=== PATIENT | male | born 1990 | race Two or more races ===

== ENCOUNTER 2023-11-30 15:28 | Observation (INO) | payer BC, SELFPAY ==
[2023-11-30] VITALS (8 sets, daily range): BP systolic 121–141; BP diastolic 70–86; PULSE 58–71; TEMP 36.6–37; O2SAT 95–98; BMI 26.6; BMI 26.0
--- NOTE | 2023-11-30 | CONS_ITS ---
CONSULTATION ? CONSULTATION DATE: ??11/30/2023 ? CHIEF COMPLAINT:? Abdominal pain. ? HISTORY OF PRESENT ILLNESS:? Patient is a 33-year-old male with history of hypercholesterolemia.? He is on no medications for this, who presented to the hospital this evening with complaint of lower abdominal pain.? He reports that the pain began approximately 11 o?clock this morning, initially was kind of crampy, sharp.? He felt bloated.? He did report that he had two small bowel movements this morning, but felt that he was possibly constipated and took several fiber gummies, as well as some MiraLax.? He also ate some lunch and then felt nauseous and then had an episode of emesis.? His pain became more severe, was constant.? He describes it as a sharp, crampy pain that was constant in the lower abdomen, even with rest or sitting it was severe.? He presented to the emergency room for evaluation, where he was found to have normal laboratory evaluation, normal vital signs.? He did undergo a CT scan of the abdomen and pelvis with IV contrast.? This was personally reviewed.? It was read as possibly consistent with early appendicitis, based on a 6 mm appendix and slight fat stranding noted in the area.? Patient had no fecalith, has a 6 mm appendix with air within it, stool within the right colon.? No free fluid.? No fecalith.? No dilatation of the appendix; however, the tip was not inflamed.? No free fluid.? Abdomen was otherwise unremarkable, except for some mildly dilated loops of small bowel within the distal ileum.? Patient was admitted for observation and was placed on empiric antibiotics.? He denies history of similar type pain, has had no bowel changes or blood in the stool.? No diarrhea.? No problems with constipation in the past.? Did report that he had been drinking last night, beer, and thought that may have contributed to his symptoms today.? He has had no previous abdominal surgeries, is on no prescription medications, no sgpl-lmi-ajflial medications.? No aspirin or NSAID use.? He has no family history of inflammatory bowel disease or GI malignancy.? He denies smoking or vaping.? ? ALLERGIES:? Patient has no known drug allergies. ? MEDICATIONS:? Once again, is on no medications or [id number]-[id number] medications. ? SOCIAL HISTORY:? He does drink alcohol socially.? Denies tobacco use or illicit drug use.? He is employed as a [employer]. ? FAMILY HISTORY:? Noncontributory. ? REVIEW OF SYSTEMS:? Ten system review of systems is negative for recent weight loss or weight gain.? Denies increased fatigue or light-headedness.? Has had no earache or tinnitus.? No sinus congestion.? No sore throat or hoarseness.? No chest pain, palpitations or syncope.? No chronic cough, shortness of breath or hemoptysis.? He has had the abdominal pain, one episode of nausea/vomiting.? No bowel changes.? No melena, hematochezia or bright red blood per rectum.? No dysuria, frequency, urgency or hematuria.? No headaches, seizures or tremors.? No easy bruising or bleeding.? No heat or cold intolerance.? No polydipsia, polyphagia or polyuria. ? PHYSICAL EXAM:? VITAL SIGNS:? Patient?s blood pressure is 134/70.? Pulse is 71 and regular.? Respiratory rate is 18.? He is afebrile.? O2 saturation is 97% on room air.? GENERAL:? In general, he is a well developed, well nourished male, in no acute distress.? He reports that his pain is resolved. HEENT:? Normocephalic, atraumatic.? Sclerae anicteric.? Conjunctiva not injected.? Oral mucosa is moist without lesions.? NECK:? Supple.? There is no adenopathy, thyromegaly or JVD. LUNGS:? Clear bilaterally.? CARDIAC EXAM:? Regular rhythm and rate without appreciable murmurs, rubs or gallops. ABDOMEN:? Soft, non-distended.? There are normal active bowel sounds.? There is very mild tenderness to deep palpation in the right lower quadrant with no peritoneal signs, no masses, hepatosplenomegaly, no hernias, no CVA tenderness. SKIN:? Warm and dry without lesions, rashes or ulcers.? NEURO EXAM:? Non-focal.? Non-lateralizing.? Patient is awake, alert, oriented with appropriate affect. ? ASSESSMENT: ?A 33-year-old male with an eight hour history of mid and lower abdominal pain, one episode of nausea/vomiting, now very mild right lower quadrant tenderness to deep palpation.? No evidence of obstruction of the appendix on CT scan or significant inflammatory changes or fecalith.? Overall, I believe it is unlikely that he has appendicitis.? ? RECOMMENDATIONS:? Certainly, he has been given antibiotics and I would complete a five day course.? I will re-evaluate him in the morning.? Certainly, if he would have a fever, worsening white count, worsening abdominal pain or tenderness, he may require a laparoscopy for appendectomy.? Certainly, I cannot rule out very early appendicitis, but given the fact that there is no obstruction of the appendix or significant inflammatory changes or dilatation of the appendix, and currently his pain has improved just with a dose of Toradol in the ER, I believe it is unlikely to represent acute appendicitis. ? CC:? Patient?s family physician?? ST[facility]ON
--- NOTE | 2023-11-30 15:52 | CT_ITS ---
The [address] [address] Patient Name: MATTHIEU NGO MRN: [id number] date: 1990 Sex: M Assigned Patient Location: ED.MAIN Current Patient Location: Accession/Order Number: [id number] Exam Date: 11/30/2023 16:05 Report Date: 11/30/2023 16:34 At the request of: GUADALUPE BULLARD Procedure: CT abdomen pelvis w con EXAM: CT abdomen pelvis w con HISTORY: rlq pain COMPARISON: None. TECHNIQUE: Axial CT imaging was performed through the abdomen and pelvis with intravenous contrast. Multiplanar reformats were performed. Dose reduction techniques were achieved by using automated exposure control and/or adjustment of mA and/or kV according to patient size and/or use of iterative reconstruction technique. FINDINGS: Lung bases: Lung bases are clear. No pleural effusion. GI upper: Unremarkable. Liver: Normal size and contour. Gallbladder: No significant abnormality. No cholelithiasis. Biliary system: No intra or extrahepatic biliary ductal dilatation. Spleen: Normal size. Pancreas: Unremarkable. Adrenal glands: Normal adrenal glands. Kidneys/ureters: Normal contours. No hydronephrosis. No nephrolithiasis or ureterolithiasis. Vessels: No aneurysm. Lymph Nodes: No lymphadenopathy. Small bowel: No wall thickening or dilatation. Colon: No wall thickening or dilatation. Appendix: The appendix is borderline in size, measuring 0.6 cm, containing stool with mild surrounding fat stranding, may represent early acute appendicitis. Peritoneal cavity: No free fluid or pneumoperitoneum. Lower : Unremarkable. Bones: No acute bony abnormality. Soft tissues: No acute finding. Additional findings: None. CT/CT abdomen pelvis w con IMPRESSION: The appendix is borderline in size, measuring 0.6 cm, containing stool with mild surrounding fat stranding, may represent early acute appendicitis. Electronically authenticated by: DENIS HEADLEY Date: 11/30/2023 16:34
[2023-11-30 16:13] LABS: Basophils Absolute Auto 0.1 10^3/uL (0.0-0.1); Basophils Percent Auto 0.4 % (0.2-2.0); Eosinophils Absolute Auto 0.4 10^3/uL (0.0-0.7); Eosinophils Percent Auto 3.2 % (0.9-7.0); Hematocrit 46.9 % (42.0-54.0); Hemoglobin 16.4 g/dL (14.0-18.0); Immature Granulocytes Abs Auto 0.03 10^3/uL (0.00-0.03); Immature Granulocytes Pct Auto 0.3 % (0.0-0.5); Lymphocytes Absolute Auto 1.9 10^3/uL (1.2-3.8); Lymphocytes Percent Auto 16.7 % (20.5-60.0); Mean Corpuscular Hemoglobin 30.9 pg (25.9-34.0); Mean Corpuscular Volume 88.5 fL (80.0-94.0); Mean Platelet Volume 9.8 fL (9.5-13.5); Monocytes Absolute Auto 0.7 10^3/uL (0.3-0.8); Monocytes Percent Auto 6.4 % (1.7-12.0); Neutrophils Absolute Auto 8.3 10^3/uL (1.4-6.5); Platelet Count 171 10^3/uL (150-450); Red Cell Distribution Width 12.3 % (11.0-15.0); White Blood Count 11.3 10^3/uL (4.0-11.0)
[2023-11-30] MEDS: 0.9 % SODIUM CHLORIDE 1,000 ML 100 ML IV (16:20)
[2023-11-30] MEDS: KETOROLAC TROMETHAMINE 30 MG/ML VIAL IVP (16:21)
[2023-11-30] MEDS: ONDANSETRON PF 4 MG/2 ML VIAL IV (16:21)
[2023-11-30 16:32] LABS: Alanine Aminotransferase 32 U/L (16-63); Albumin Globulin Ratio 1.3; Albumin Level 4.3 g/dL (3.4-5.0); Alkaline Phosphatase 63 U/L (46-116); Anion Gap 7.5; Aspartate Amino Transferase 14 U/L (15-37); Bilirubin Total 0.3 mg/dL (0.2-1.0); Calcium 9.2 mg/dL (8.5-10.1); Carbon Dioxide 33.1 mmol/L (21.0-32.0); Chloride 99 mmol/L (98-107); Estimated GFR (African America >60 (>=60); Estimated GFR (Non-African Ame >60 (>=60); Globulin 3.4 g/dL; Glucose 96 mg/dL (74-106); Potassium 3.6 mmol/L (3.5-5.1); Sodium 136 mmol/L (136-145); Total Protein 7.7 g/dL (6.4-8.2)
--- NOTE | 2023-11-30 16:42 | ED.GENADUL1 ---
HPI HPI - General Adult General Chief complaint: Abdominal Pain Stated complaint: Abdominal Pain, Nausea/Vomiting Time Seen by Provider: 11/30/23 15:48 Source: patient Mode of arrival: walk-in History of Present Illness HPI narrative: 33-year-old male presents with chief complaint of right lower quadrant abdominal pain. Patient states pain began around 11 AM. Patient attempted to eat lunch and became nauseous and vomited. Patient denies fevers or chills. States she has had periumbilical pain and lower abdominal cramping. Patient denies any previous history of abdominal surgeries. He has right lower quadrant tenderness on palpation initially on exam. He denies known fever. He denies diarrhea. past medical History includes hyperlipidemia Related Data Home Medications ?Medication ?Instructions ?Recorded ?Confirmed No Known Home Medications 11/30/23 11/30/23 Allergies Allergy/AdvReac Type Severity Reaction Status Date / Time No Known Drug Allergies Allergy Verified 11/30/23 15:37 Opioid HPI Opioid Management Most Recent Opioid Data: Last Pain Scale 7 11/30/23 16:21 Last MAR Pain Assessment 11/30/23 16:21 Review of Systems ROS Narrative All Systems are negative except as noted/marked.All systems reviewed and otherwise negative PFSH PFSH Social History Little interest or pleasure in doing things: not at all Feeling down, depressed, or hopeless: not at all Exam Narrative Exam Narrative: Nurses note and vital signs reviewed and patient is not hypoxic. General: The patient appears well and in no apparent distress. Patient is resting comfortably on cart. Skin: Warm, dry, no pallor noted. There is no rash noted. Head: Normocephalic, atraumatic Eye: Normal conjunctiva, no drainage, EOMI. PERRL Ears, Nose, Mouth, and Throat: oral mucosa is moist. Nares patent. Mouth without vesicles. Ear canals patent. Tm's without Erythema Cardiovascular: Regular Rate and Rhythm GI: Right lower quadrant abdominal tenderness to palpation periumbilical tenderness, normal bowel sounds. No rebound, guarding, or rigidity noted. Musculoskeletal: The patient has no evidence of calf tenderness, no pitting edema, symmetrical pulses noted bilaterally Neurological: A&O x4, normal speech Psychiatric: Cooperative Constitutional Vital Signs, click to edit/add: Last Vital Signs Temp 98 F 11/30/23 15:34 Pulse 62 11/30/23 15:34 Resp 16 11/30/23 15:34 BP 141/86 11/30/23 15:34 Pulse Ox 98 11/30/23 15:34 O2 Del Method Room Air 11/30/23 15:34 Course Vital Signs Vital signs: Vital Signs Temperature 98 F 11/30/23 15:34 Pulse Rate 62 11/30/23 15:34 Respiratory Rate 16 11/30/23 15:34 Blood Pressure 141/86 11/30/23 15:34 Pulse Oximetry 98 11/30/23 15:34 Oxygen Delivery Method Room Air 11/30/23 15:34 Temperature 98 F 11/30/23 15:34 Pulse Rate 62 11/30/23 15:34 Respiratory Rate 16 11/30/23 15:34 Blood Pressure 141/86 11/30/23 15:34 Pulse Oximetry 98 11/30/23 15:34 Oxygen Delivery Method Room Air 11/30/23 15:34 Medical Decision Making MDM Narrative Medical decision making narrative: 33-year-old male presents with chief complaint of right lower quadrant abdominal pain. Patient states pain began around 11 AM. Patient attempted to eat lunch and became nauseous and vomited. Patient denies fevers or chills. States she has had periumbilical pain and lower abdominal cramping. Patient denies any previous history of abdominal surgeries. He has right lower quadrant tenderness on palpation initially on exam. He denies known fever. He denies diarrhea. past medical History includes hyperlipidemia Patient presented with chief complaint right lower quadrant abdominal pain. Upon arrival to the emergency room IV was established blood work was obtained. Patient CBC shows mildly elevated white blood cell count 11.2. cmp within normal limits. CT scan was also performed and showed probable early onset of acute appendicitis. consult to general surgeon Dr. Jackson regarding this patient's diagnosis. He agrees to admit the patient for observation to Dr. Brush. Patient will be given IV Unasyn started here in the emergency room. Patient is made aware of diagnosis and agrees with plan of care. Pain and nausea have improved with Toradol and Zofran. Differential Diagnosis Differential Diagnosis: Constipation diverticulitis, appendicitis Medical Records Medical records reviewed: Yes I reviewed the patient's medical records Lab Data Lab results reviewed: Yes I reviewed the patient's lab results Labs: Lab Results 11/30/23 Range/Units 16:00 WBC 11.3 H (4.0-11.0) 10^3/uL RBC 5.30 (4.70-6.10) 10^6/uL Hgb 16.4 (14.0-18.0) g/dL Hct 46.9 (42.0-54.0) % MCV 88.5 (80.0-94.0) fL MCH 30.9 (25.9-34.0) pg MCHC 35.0 (29.9-35.2) g/dL RDW 12.3 (11.0-15.0) % Plt Count 171 (150-450) 10^3/uL MPV 9.8 (9.5-13.5) fL Neut % (Auto) 73.0 (43.0-75.0) % Lymph % (Auto) 16.7 L (20.5-60.0) % [place] % (Auto) 6.4 (1.7-12.0) % Eos % (Auto) 3.2 (0.9-7.0) % Baso % (Auto) 0.4 (0.2-2.0) % Neut # (Auto) 8.3 H (1.4-6.5) 10^3/uL Lymph # (Auto) 1.9 (1.2-3.8) 10^3/uL [place] # (Auto) 0.7 (0.3-0.8) 10^3/uL Eos # (Auto) 0.4 (0.0-0.7) 10^3/uL Baso # (Auto) 0.1 (0.0-0.1) 10^3/uL Abs Immat Gran (auto) 0.03 (0.00-0.03) 10^3/uL Imm/Tot Granulo (auto) 0.3 (0.0-0.5) % Sodium 136 (136-145) mmol/L Potassium 3.6 (3.5-5.1) mmol/L Chloride 99 (98-107) mmol/L Carbon Dioxide 33.1 H (21.0-32.0) mmol/L Anion Gap 7.5 BUN 17.0 (7.0-18.0) mg/dL Creatinine 1.13 (0.70-1.30) mg/dL Est GFR ( Amer) >60 (>=60) Est GFR (Non-Af Amer) >60 (>=60) BUN/Creatinine Ratio 15.0 Glucose 96 (74-106) mg/dL Calcium 9.2 (8.5-10.1) mg/dL Total Bilirubin 0.3 (0.2-1.0) mg/dL AST 14 L (15-37) U/L ALT 32 (16-63) U/L Alkaline Phosphatase 63 (46-116) U/L Total Protein 7.7 (6.4-8.2) g/dL Albumin 4.3 (3.4-5.0) g/dL Globulin 3.4 g/dL Albumin/Globulin Ratio 1.3 Lipase 35.0 (16.0-77.0) U/L Imaging Data CT scan - abdomen: Radiologist's impression: ITS Impressions Abdomen/Pelvis CT 11/30/23 15:52 IMPRESSION: The appendix is borderline in size, measuring 0.6 cm, containing stool with mild surrounding fat stranding, may represent early acute appendicitis. Electronically authenticated by: DENIS HEADLEY Date: 11/30/2023 16:34 ECG Data Interpretation: 1700 sinus rhythm with a rate of 64 bpm, PA interval 186 ms QRS duration 160 ms incomplete right bundle branch block noted in V1 he has a known history of right bundle branch block. no comparison ekg Discharge Plan Discharge Chief Complaint: Abdominal Pain Clinical Impression: Abdominal pain, Acute appendicitis Patient Disposition: Admitted as Observation Time of Disposition Decision: 16:47 Condition: Good
--- NOTE | 2023-11-30 16:56 | ECG_ITS ---
The [facility] Test Date: 2023-11-30 Pat Name: MATTHIEU NGO Department: Room: - Gender: Male [employer]: : 1990 Requested By: MATTHIEU CANO Order Number: [id number] Reading MD: HEATHER JACOBSEN Measurements Intervals Lyons Rate: 64 P: 60 NV: 186 QRS: 71 QRSD: 116 T: 62 QT: 390 QTc: 400 Interpretive Statements 1100 Sinus rhythm 2440 Incomplete right bundle branch block 6220 Possible left atrial enlargement 9130 borderline ECG No previous ECG available for comparison Electronically Signed On 11-30-2023 20:28:26 EDT by HEATHER JACOBSEN
[2023-11-30] MEDS: AMPICILLIN SODIUM/SULBACTAM NA 3 GM in 0.9 % SODIUM CHLORIDE 100 ML IV (17:11)
[2023-11-30 18:11] LABS: Bilirubin Urine NEGATIVE (NEGATIVE); Blood Urine NEGATIVE (NEGATIVE); Clarity Urine CLEAR (CLEAR); Color Urine LT. YELLOW (YELLOW); Glucose Urine UA NEGATIVE (NEGATIVE); Ketones Urine NEGATIVE (NEGATIVE); Leukocyte Esterase Urine NEGATIVE (NEGATIVE); Nitrite Urine NEGATIVE (NEGATIVE); Protein Urine NEGATIVE (NEG/TRACE); Urobilinogen Urine 0.2 EU/dL (0.2-1.0)
[2023-11-30 18:13] LABS: Urine Microscopic Indicated YES
[2023-11-30 18:25] LABS: Bacteria Urine NONE SEEN #/HPF (NONE SEEN); Cast Seen? NONE SEEN #/LPF (NONE SEEN); Crystals Seen? None Seen #/HPF (None Seen); Mucus Urine NONE SEEN (NONE SEEN); RBC Urine NONE SEEN #/HPF (0-2); Squamous Epithelial Cell Urine RARE #/LPF (NONE/RARE); WBC Urine 0-2 #/HPF (NONE SEEN)
--- NOTE | 2023-11-30 19:40 | P.GSCN_ITS ---
History of Present Illness Consult details Consult date: 11/30/23 Reason for consult: abdominal pain Requesting physician: Shaikh Nany Narrative: patient seen/examined/chart and ct scan images reviewed/consult dictated; 33 yo male with 8 hr h/o mid and lower sharp, crampy abd pain; one episode of N/V; normal labs; abd/pelvic ct scan read as borderline appendix with mild fat stranding; normal 6 mm appendix without obstruction or fecalith noted, no significant inflammation, no free fluid; slight wall enhancement, no thickening; patient now resolved after just Toradol in ED; mild tenderness to deep palpation, no peritoneal signs; overall, unlikely to be early appendicitis; will recheck abd exam in the morning and wbc; will need to complete 5 day course of antibiotics. [facility] Medical History (Updated 11/30/23 @ 18:10 by Noe Jackson MD) High blood cholesterol level ?E78.00 - Pure hypercholesterolemia, unspecified (ICD-10) Family History (Updated 11/30/23 @ 18:31 by Velvet Rudolph) Mother Family history of CHF (congestive heart failure) Family history of COPD (chronic obstructive pulmonary disease) Father Family history of myocardial infarction Social History (Updated 11/30/23 @ 18:35 by Velvet Rudolph) Within the past year, how often did you have a drink containing alcohol: 2-3 times a week Within the past year, how many standard drinks containing alcohol did you have on a typical day: 1 or 2 Within the past year, how often did you have six or more drinks on one occasion: never Total score: 0 Score interpretation: A score less than 4 is consistent with normal alcohol consumption. Smoking status: Never smoker Second hand tobacco smoke exposure: No Non-prescribed substance use: denies use Previous occupational history: [employer] Highest level of school completed/degree received: some college, no degree Are you now , , , , never or living with a partner: living with partner Little interest or pleasure in doing things: not at all Feeling down, depressed, or hopeless: not at all Feel stressed/tense/nervous/anxious/difficulty sleeping: not at all Due to disability, difficulty making decisions: No Meds Home Medications and Allergies Home Medications ?Medication ?Instructions ?Recorded ?Confirmed ?Type No Known Home Medications 11/30/23 11/30/23 History Allergies Allergy/AdvReac Type Severity Reaction Status Date / Time No Known Drug Allergies Allergy Verified 11/30/23 15:37 Exam Constitutional Vital Signs, click to edit/add: Last Vital Signs Temp 98.6 F 11/30/23 18:06 Pulse 71 11/30/23 18:09 Resp 17 11/30/23 18:09 BP 134/70 11/30/23 18:09 Pulse Ox 97 11/30/23 18:09 O2 Del Method Room Air 11/30/23 18:09 Results Labs Labs: Abnormal lab results 11/30/23 11/30/23 Range/Units 16:00 17:50 WBC 11.3 H (4.0-11.0) 10^3/uL Lymph % (Auto) 16.7 L (20.5-60.0) % Neut # (Auto) 8.3 H (1.4-6.5) 10^3/uL Carbon Dioxide 33.1 H (21.0-32.0) mmol/L AST 14 L (15-37) U/L Urine WBC 0-2 A (NONE SEEN) #/HPF Diabetes panel 11/30/23 Range/Units 16:00 Sodium 136 (136-145) mmol/L Potassium 3.6 (3.5-5.1) mmol/L Chloride 99 (98-107) mmol/L Carbon Dioxide 33.1 H (21.0-32.0) mmol/L BUN 17.0 (7.0-18.0) mg/dL Creatinine 1.13 (0.70-1.30) mg/dL Glucose 96 (74-106) mg/dL Calcium 9.2 (8.5-10.1) mg/dL AST 14 L (15-37) U/L ALT 32 (16-63) U/L Alkaline Phosphatase 63 (46-116) U/L Total Protein 7.7 (6.4-8.2) g/dL Albumin 4.3 (3.4-5.0) g/dL Calcium panel 11/30/23 Range/Units 16:00 Calcium 9.2 (8.5-10.1) mg/dL Albumin 4.3 (3.4-5.0) g/dL Pituitary panel 11/30/23 Range/Units 16:00 Sodium 136 (136-145) mmol/L Potassium 3.6 (3.5-5.1) mmol/L Chloride 99 (98-107) mmol/L Carbon Dioxide 33.1 H (21.0-32.0) mmol/L BUN 17.0 (7.0-18.0) mg/dL Creatinine 1.13 (0.70-1.30) mg/dL Glucose 96 (74-106) mg/dL Calcium 9.2 (8.5-10.1) mg/dL Adrenal panel 11/30/23 Range/Units 16:00 Sodium 136 (136-145) mmol/L Potassium 3.6 (3.5-5.1) mmol/L Chloride 99 (98-107) mmol/L Carbon Dioxide 33.1 H (21.0-32.0) mmol/L BUN 17.0 (7.0-18.0) mg/dL Creatinine 1.13 (0.70-1.30) mg/dL Glucose 96 (74-106) mg/dL Calcium 9.2 (8.5-10.1) mg/dL Total Bilirubin 0.3 (0.2-1.0) mg/dL AST 14 L (15-37) U/L ALT 32 (16-63) U/L Alkaline Phosphatase 63 (46-116) U/L Total Protein 7.7 (6.4-8.2) g/dL Albumin 4.3 (3.4-5.0) g/dL All other labs normal.
[2023-11-30] MEDS: LACTATED RINGER'S SOLUTION 1,000 ML 125 ML IV (20:50)
[2023-11-30] MEDS: PANTOPRAZOLE SODIUM 40 MG VIAL IV (21:44)
[2023-11-30] MEDS: PIPERACILLIN SODIUM/TAZOBACTAM 3.375 GM in 0.9 % SODIUM CHLORIDE 50 ML IV (22:53)
[2023-12-01] MEDS: LACTATED RINGER'S SOLUTION 1,000 ML 125 ML IV (04:21)
[2023-12-01 04:23] VITALS: BP 107/55; PULSE 61; TEMP 36.7; O2SAT 94
[2023-12-01] MEDS: PIPERACILLIN SODIUM/TAZOBACTAM 3.375 GM in 0.9 % SODIUM CHLORIDE 50 ML IV (06:03)
--- NOTE | 2023-12-01 06:22 | PM.GSPN ---
Progress Note: A&P Assessment and Plan (1) Abdominal pain: Qualifiers: Abdominal location: right lower quadrant Qualified Code(s): R10.31 - Right lower quadrant pain Plan improved, still with tenderness, no pain; await wbc; if normal, will advance diet and discharge if tolerates on antibiotics for 1 week; Augmentin; can follow up with me in 1 week. Subjective Subjective Interval history: denies abd pain, no N/V, no fevers; able to sleep overnight Exam Narrative Exam Narrative: abd: soft, normal bs, nondistended; tender RLQ without peritoneal signs. Constitutional Vital Signs, click to edit/add: Last Vital Signs Temp 98.1 F 12/01/23 04:23 Pulse 61 12/01/23 04:23 Resp 16 12/01/23 04:23 BP 107/55 12/01/23 04:23 Pulse Ox 94 L 12/01/23 04:23 O2 Del Method Room Air 12/01/23 04:23 Date and Time Date and Time of Service Date of service: 12/01/23 Time: 06:22
[2023-12-01 06:38] LABS: Basophils Percent Auto 0.1 % (0.2-2.0); Eosinophils Absolute Auto 0.3 10^3/uL (0.0-0.7); Eosinophils Percent Auto 3.2 % (0.9-7.0); Hematocrit 43.5 % (42.0-54.0); Hemoglobin 14.7 g/dL (14.0-18.0); Immature Granulocytes Abs Auto 0.02 10^3/uL (0.00-0.03); Immature Granulocytes Pct Auto 0.2 % (0.0-0.5); Lymphocytes Percent Auto 19.7 % (20.5-60.0); Mean Corpuscular HGB Conc 33.8 g/dL (29.9-35.2); Mean Corpuscular Hemoglobin 30.6 pg (25.9-34.0); Mean Corpuscular Volume 90.4 fL (80.0-94.0); Mean Platelet Volume 10.4 fL (9.5-13.5); Monocytes Absolute Auto 0.9 10^3/uL (0.3-0.8); Monocytes Percent Auto 8.6 % (1.7-12.0); Neutrophils Absolute Auto 6.9 10^3/uL (1.4-6.5); Neutrophils Percent Auto 68.2 % (43.0-75.0); Platelet Count 141 10^3/uL (150-450); Red Blood Count 4.81 10^6/uL (4.70-6.10); Red Cell Distribution Width 12.5 % (11.0-15.0); White Blood Count 10.1 10^3/uL (4.0-11.0)
[2023-12-01 07:12] LABS: Alanine Aminotransferase 27 U/L (16-63); Albumin Globulin Ratio 1.1; Albumin Level 3.4 g/dL (3.4-5.0); Alkaline Phosphatase 50 U/L (46-116); Aspartate Amino Transferase 14 U/L (15-37); BUN Creatinine Ratio 11.9; Bilirubin Total 0.8 mg/dL (0.2-1.0); Calcium 8.6 mg/dL (8.5-10.1); Chloride 103 mmol/L (98-107); Estimated GFR (African America >60 (>=60); Estimated GFR (Non-African Ame >60 (>=60); Globulin 3.1 g/dL; Glucose 97 mg/dL (74-106); Potassium 3.8 mmol/L (3.5-5.1); Sodium 137 mmol/L (136-145); Total Protein 6.5 g/dL (6.4-8.2)
[2023-12-01 07:53] LABS: Anion Gap 8.5; Carbon Dioxide 29.3 mmol/L (21.0-32.0)
--- NOTE | 2023-12-01 10:29 | CM.NOTE ---
Rounds made with Dr. Ayon. Plan for discharge today. Follow up with General Surgeon in the outpatient setting.
--- NOTE | 2023-12-01 10:42 | PM.HP ---
HPI H&P: HPI History of Present Illness Chief complaint: Abdominal Pain, Vomiting, Early Acute Appendicitis Narrative: HPI and Hospital Course 33 y o with no significant past medical history presented to ER yesterday with sudden onset right lower quadrant abdominal pain that was associated with nausea. Initially pain was dull but it progressively got worse in intensity and more sharp in character along with anorexia and poor appetite. Patient came to ED last night and was found to have mild leukocytosis along with possible early appendicitis. He was overnight treated with IV antibiotics and kept NPO. Patient was seen by general surgery who recommended treatment with oral antibiotics and follow-up with general surgery as outpatient in 1 to 2 weeks. Patient was educated on worrisome signs and symptoms that should prompt him to seek urgent care in ER. Patient is medically stable for discharge. He will be discharged on oral Augmentin along with Zofran as needed for nausea, Motrin as needed for pain Opioid HPI Opioid Management Most Recent Pain and Opioid Data: Last Pain Scale 7 11/30/23 16:21 Last Pain Assessment 12/01/23 09:25 Last MAR Pain Assessment 11/30/23 16:21 Last ORT Total Score 0 11/30/23 18:06 Last ORT Risk Category Low Risk 11/30/23 18:06 Review of Systems ROS Status of ROS 10 or more systems reviewed and unremarkable except as noted in history and below [facility] Medical History (Updated 12/01/23 @ 10:45 by Shaikh Nany MD) High blood cholesterol level ?E78.00 - Pure hypercholesterolemia, unspecified (ICD-10) Family History (Updated 11/30/23 @ 18:31 by Velvet Rudolph) Mother Family history of CHF (congestive heart failure) Family history of COPD (chronic obstructive pulmonary disease) Father Family history of myocardial infarction Social History (Updated 11/30/23 @ 18:35 by Velvet Rudolph) Within the past year, how often did you have a drink containing alcohol: 2-3 times a week Within the past year, how many standard drinks containing alcohol did you have on a typical day: 1 or 2 Within the past year, how often did you have six or more drinks on one occasion: never Total score: 0 Score interpretation: A score less than 4 is consistent with normal alcohol consumption. Smoking status: Never smoker Second hand tobacco smoke exposure: No Non-prescribed substance use: denies use Previous occupational history: [employer] Highest level of school completed/degree received: some college, no degree Are you now , , , , never or living with a partner: living with partner Little interest or pleasure in doing things: not at all Feeling down, depressed, or hopeless: not at all Feel stressed/tense/nervous/anxious/difficulty sleeping: not at all Due to disability, difficulty making decisions: No Meds Home Medications and Allergies Home Medications ?Medication ?Instructions ?Recorded ?Confirmed ?Type amoxicillin 500 mg-potassium 1 tab PO BID #14 tabs 12/01/23 Rx clavulanate 125 mg tablet (Augmentin) ibuprofen 600 mg tablet 600 mg PO Q8H PRN fever or pain 12/01/23 Rx #30 tabs ondansetron 4 mg disintegrating 4 mg PO Q8H PRN nausea and 12/01/23 Rx tablet vomiting #10 tabs Allergies Allergy/AdvReac Type Severity Reaction Status Date / Time No Known Drug Allergies Allergy Verified 11/30/23 15:37 Exam Constitutional Vital Signs, click to edit/add: Last Vital Signs Temp 98.1 F 12/01/23 04:23 Pulse 61 12/01/23 04:23 Resp 16 12/01/23 04:23 BP 107/55 12/01/23 04:23 Pulse Ox 94 L 12/01/23 04:23 O2 Del Method Room Air 12/01/23 04:23 Documenting provider has reviewed patient's vital signs: yes Common normals: no apparent distress and oriented x3 General appearance: cooperative Respiratory Common normals: normal respiratory effort and clear to auscultation bilaterally Effort & inspection: able to speak in complete sentences Auscultation: clear to auscultation bilaterally Cardio Common normals: regular rate, S1 normal heart sound and S2 normal heart sound Rate: regular rate Heart sounds: S1 normal and S2 normal GI Common normals: Normal to inspection, nondistended, normoactive bowel sounds present, soft to palpation and no hepatosplenomegaly Palpation: soft, tender Details: RLQ and no hepatosplenomegaly Extremity Common normals: no clubbing, cyanosis or edema Neuro Common normals: oriented x3, moves all extremities and no focal motor deficits Psych Common normals: mental status grossly normal, denies hallucinations, denies homicidal ideation and denies suicidal ideation Results Labs Labs: Short CBC 11/30/23 12/01/23 Range/Units 16:00 06:06 WBC 11.3 H 10.1 (4.0-11.0) 10^3/uL Hgb 16.4 14.7 (14.0-18.0) g/dL Hct 46.9 43.5 (42.0-54.0) % Plt Count 171 141 L (150-450) 10^3/uL BMP 11/30/23 12/01/23 16:00 06:06 Sodium 136 137 Potassium 3.6 3.8 Chloride 99 103 Carbon Dioxide 33.1 H 29.3 BUN 17.0 13.0 Creatinine 1.13 1.09 Glucose 96 97 Calcium 9.2 8.6 Liver Function 11/30/23 12/01/23 Range/Units 16:00 06:06 Total Bilirubin 0.3 0.8 (0.2-1.0) mg/dL AST 14 L 14 L (15-37) U/L ALT 32 27 (16-63) U/L Alkaline Phosphatase 63 50 (46-116) U/L Albumin 4.3 3.4 (3.4-5.0) g/dL Urine 11/30/23 Range/Units 17:50 Urine Color Lt. yellow (YELLOW) Urine Clarity Clear (CLEAR) Urine pH 8.0 (5.0-9.0) Ur Specific Combs 1.010 (1.005-1.025) Urine Protein Negative (NEG/TRACE) mg/dL Urine Glucose (UA) Negative (NEGATIVE) mg/dL Assessment and Plan Assessment and Plan (1) Acute appendicitis: Qualifiers: Acute appendicitis type: with localized peritonitis Appendicitis gangrene presence: without gangrene Appendicitis perforation presence: without perforation Appendicitis abscess presence: without abscess Qualified Code(s): K35.30 - Acute appendicitis with localized peritonitis, without perforation or gangrene (2) Abdominal pain: Qualifiers: Abdominal location: right lower quadrant Qualified Code(s): R10.31 - Right lower quadrant pain (3) Leukocytosis: Qualifiers: Leukocytosis type: leukemoid reaction Qualified Code(s): D72.823 - Leukemoid reaction Plan Presented with acute early appendicitis. Symptoms improved overnight with IV antibiotics. Evaluated by general surgery who recommended treatment with oral antibiotic and follow-up with general surgery in 1 week. Patient educated on worrisome signs and symptoms that should prompt him to seek urgent care in ER. Patient medically stable for discharge on oral antibiotic.
[2023-12-01 11:14] VITALS: O2SAT 94
[2023-12-01 11:21] VITALS: O2SAT 94
--- NOTE | 2023-12-03 13:14 | CM.DCFOLLOWU ---
Person spoke with: patient How are you feeling? well How is your pain? no more pain, feeling back to normal Did you understand your discharge instructions?yes Do you have any questions about your discharge instructions?no Were you given any prescriptions at discharge? yes Were you able to get your prescriptions filled?yes Do you understand how to take your medications as ordered?yes Do you have any questions about your follow up appointment and do you plan to keep your follow up appointment? no questions, follow up reviewed and he will call Dr. Jackson's office back to schedule as they called him and left message Is there anything else that you would like to discuss?no Questions/Comments/Concerns/Other:none
== END 2023-12-01 11:35 | disposition home or self-care (01) ==
LOC: ER 17:26 → MS 17:57
PROVIDERS: Physician Assistant; Admitting Provider Internal Medicine; Emergency Provider Emergency Medicine; Visit Provider Internal Medicine
DX: K35.30 Acute appendicitis with localized peritonitis, without perforation or gangrene (principal); R10.31 Right lower quadrant pain; D72.823 Leukemoid reaction; E78.00 Pure hypercholesterolemia, unspecified
CPT/HCPCS: 36415; 74177; 80053; 81001; 83690; 85025; 93005; 94761; 96365; 96366; 96367; 96375; 99285; G0378; J0295; J1885; J2405; J2543; Q9967

== ENCOUNTER 2024-02-27 09:55 | Emergency (ER) | payer BC, SELFPAY ==
[2024-02-27 09:59] VITALS: BP 142/86; PULSE 66; TEMP 36.6; O2SAT 99; BMI 25.1
--- NOTE | 2024-02-27 10:36 | CT_ITS ---
The [address] [address] Patient Name: MATTHIEU NGO MRN: [id number] date: 1990 Sex: M Assigned Patient Location: ER Current Patient Location: ED.MAIN Accession/Order Number: [id number] Exam Date: 02/27/2024 11:07 Report Date: 02/27/2024 11:23 At the request of: ZAID TEJEDA Procedure: CT abdomen pelvis w con EXAM: CT abdomen pelvis w con HISTORY: abd pain COMPARISON: CT abdomen pelvis 11/30/2023. TECHNIQUE: Following the intravenous administration of 100 cc of Omnipaque 300, axial soft tissue windows of the abdomen and pelvis were performed with coronal and sagittal reformats. CT dose reduction technique was used including Automated Exposure Control. Findings: ABDOMEN: The liver, gallbladder, spleen, pancreas, adrenal glands and kidneys are unremarkable. The bilateral ureters are nondilated. Evaluation of the bowel is limited given the absence of oral contrast. No bowel obstruction. The appendix is fluid-filled and mildly dilated with subtle adjacent remaining of fat. The aorta is normal caliber. No enlarged abdominal lymph nodes or free abdominal fluid. Pelvis: Unremarkable bladder. The prostate is nonenlarged. No enlarged pelvic lymph nodes or free pelvic fluid. No aggressive sclerotic or lytic osseous lesions. CT/CT abdomen pelvis w con IMPRESSION: 1. Fluid-filled and mildly dilated appendix with subtle adjacent stranding in the fat concerning for acute appendicitis. Electronically authenticated by: LEE ANN POWELL Date: 02/27/2024 11:23
[2024-02-27 11:06] LABS: Basophils Absolute Auto 0.1 10^3/uL (0.0-0.1); Basophils Percent Auto 0.3 % (0.2-2.0); Eosinophils Absolute Auto 0.4 10^3/uL (0.0-0.7); Hematocrit 49.5 % (42.0-54.0); Hemoglobin 16.7 g/dL (14.0-18.0); Immature Granulocytes Abs Auto 0.05 10^3/uL (0.00-0.03); Immature Granulocytes Pct Auto 0.3 % (0.0-0.5); Lymphocytes Absolute Auto 2.3 10^3/uL (1.2-3.8); Lymphocytes Percent Auto 15.5 % (20.5-60.0); Mean Corpuscular HGB Conc 33.7 g/dL (29.9-35.2); Mean Corpuscular Hemoglobin 30.4 pg (25.9-34.0); Mean Platelet Volume 9.9 fL (9.5-13.5); Monocytes Absolute Auto 0.6 10^3/uL (0.3-0.8); Neutrophils Absolute Auto 11.2 10^3/uL (1.4-6.5); Neutrophils Percent Auto 76.9 % (43.0-75.0); Platelet Count 212 10^3/uL (150-450); Red Cell Distribution Width 12.8 % (11.0-15.0); White Blood Count 14.6 10^3/uL (4.0-11.0)
[2024-02-27 11:18] LABS: Alanine Aminotransferase 49 U/L (16-63); Albumin Globulin Ratio 1.1; Albumin Level 4.2 g/dL (3.4-5.0); Alkaline Phosphatase 62 U/L (46-116); Aspartate Amino Transferase 24 U/L (15-37); BUN Creatinine Ratio 15.4; Bilirubin Total 0.4 mg/dL (0.2-1.0); Calcium 9.2 mg/dL (8.5-10.1); Carbon Dioxide 31.1 mmol/L (21.0-32.0); Chloride 102 mmol/L (98-107); Estimated GFR (African America >60 (>=60 mL/min/1.73m^2); Estimated GFR (Non-African Ame >60 (>=60 mL/min/1.73m^2); Globulin 3.9 g/dL; Glucose 107 mg/dL (74-106); Potassium 4.1 mmol/L (3.5-5.1); Sodium 136 mmol/L (136-145); Total Protein 8.1 g/dL (6.4-8.2)
[2024-02-27 11:28] LABS: Lactate/Lactic Acid 0.8 mmol/L (0.4-2.0)
[2024-02-27 11:46] LABS: Bilirubin Urine NEGATIVE (NEGATIVE); Blood Urine NEGATIVE (NEGATIVE); Clarity Urine CLEAR (CLEAR); Color Urine YELLOW (YELLOW); Glucose Urine UA NEGATIVE (NEGATIVE); Ketones Urine NEGATIVE (NEGATIVE); Leukocyte Esterase Urine NEGATIVE (NEGATIVE); Nitrite Urine NEGATIVE (NEGATIVE); Protein Urine NEGATIVE (NEG/TRACE); Urobilinogen Urine 0.2 EU/dL (0.2-1.0)
[2024-02-27 11:47] LABS: Urine Microscopic Indicated NO
[2024-02-27] MEDS: KETOROLAC TROMETHAMINE 30 MG/ML VIAL IVP (13:21)
[2024-02-27 13:24] VITALS: BP 139/86; PULSE 59; TEMP 37.3; O2SAT 99
[2024-02-27] MEDS: AMPICILLIN SODIUM/SULBACTAM NA 3 GM in 0.9 % SODIUM CHLORIDE 100 ML IV (13:34)
--- NOTE | 2024-02-27 14:03 | ED.ABDPAIN1 ---
Documented by User: Alpa Parks 02/27/24 14:11 HPI - Abdominal Pain General Chief Complaint: Abdominal Pain Stated Complaint: APPENDIX PAINS Time Seen by Provider: 02/27/24 13:14 History of Present Illness HPI narrative: 33-year-old male presents to the emergency room chief complaint of right lower quadrant abdominal pain. Patient states the pain began around 730 this morning. He states he drank a Monster at 630 and pain began at 730. patient states he has not eaten anything since 7pm last night. Episode of right lower quadrant abdominal pain in November diagnosed with questionable appendicitis was given IV Unasyn antibiotics and pain subsided. He has not had any issues since that time. States he woke this morning began to have right lower quadrant pain similar to previous episode. Patient denies fevers chills complains of vomiting and pain of 6 out of 10. Related Data Home Medications ?Medication ?Instructions ?Recorded ?Confirmed No Known Home Medications 02/27/24 02/27/24 Allergies Allergy/AdvReac Type Severity Reaction Status Date / Time No Known Drug Allergies Allergy Verified 02/27/24 10:04 Review of Systems ROS Narrative All Systems are negative except as noted/marked.All systems reviewed and otherwise negative PFSH PFSH Medical History (Updated 02/27/24 @ 14:12 by Alpa Parks) Abdominal pain ?R10.9 - Unspecified abdominal pain (ICD-10) High blood cholesterol level ?E78.00 - Pure hypercholesterolemia, unspecified (ICD-10) Family History (Updated 11/30/23 @ 18:31 by Velvet Rudolph) Mother Family history of CHF (congestive heart failure) Family history of COPD (chronic obstructive pulmonary disease) Father Family history of myocardial infarction Social History (Updated 11/30/23 @ 18:35 by Velvet Rudolph) Within the past year, how often did you have a drink containing alcohol: 2-3 times a week Within the past year, how many standard drinks containing alcohol did you have on a typical day: 1 or 2 Within the past year, how often did you have six or more drinks on one occasion: never Total score: 0 Score interpretation: A score less than 4 is consistent with normal alcohol consumption. Smoking status: Never smoker Second hand tobacco smoke exposure: No Non-prescribed substance use: denies use Previous occupational history: [employer] Highest level of school completed/degree received: some college, no degree Are you now , , , , never or living with a partner: living with partner Little interest or pleasure in doing things: not at all Feeling down, depressed, or hopeless: not at all Feel stressed/tense/nervous/anxious/difficulty sleeping: not at all Due to disability, difficulty making decisions: No Exam Narrative Exam Narrative: Nurses note and vital signs reviewed and patient is not hypoxic. General: The patient appears well and in no apparent distress. Patient is resting comfortably on cart. Skin: Warm, dry, no pallor noted. There is no rash noted. Head: Normocephalic, atraumatic Eye: Normal conjunctiva, no drainage, EOMI. PERRL Ears, Nose, Mouth, and Throat: oral mucosa is moist. Nares patent. Mouth without vesicles. Ear canals patent. Tm's without Erythema Cardiovascular: Regular Rate and Rhythm Respiratory: Patient is in no distress, no accessory muscle use, lungs are clear to auscultation, no wheezing, rales or rhonchi Back: non-tender, no CVA tenderness bilaterally to percussion. GI: Right lower quadrant abdominal pain, mild tenderness with guarding noted on exertional examination. Normal bowel sounds, n Musculoskeletal: patient has no evidence of calf tenderness, no pitting edema, symmetrical pulses noted bilaterally Neurological: A&O x4, normal speech Psychiatric: Cooperative Constitutional Vital Signs, click to edit/add: Last Vital Signs Temp 99.2 F 02/27/24 13:24 Pulse 59 L 02/27/24 13:24 Resp 14 02/27/24 13:24 BP 139/86 02/27/24 13:24 Pulse Ox 99 02/27/24 13:24 O2 Del Method Room Air 02/27/24 13:24 Course Vital Signs Vital signs: Vital Signs Temperature 97.9 F 02/27/24 09:59 Pulse Rate 66 02/27/24 09:59 Respiratory Rate 20 02/27/24 09:59 Blood Pressure 142/86 H 02/27/24 09:59 Pulse Oximetry 99 02/27/24 09:59 Oxygen Delivery Method Room Air 02/27/24 09:59 Temperature 99.2 F 02/27/24 13:24 Pulse Rate 59 L 02/27/24 13:24 Respiratory Rate 14 02/27/24 13:24 Blood Pressure 139/86 02/27/24 13:24 Pulse Oximetry 99 02/27/24 13:24 Oxygen Delivery Method Room Air 02/27/24 13:24 MDM - Abdominal Pain MDM Narrative Medical decision making narrative: 33-year-old male presents to the emergency room chief complaint of right lower quadrant abdominal pain. Patient states the pain began around 730 this morning. He states he drank a Monster at 630 and pain began at 730. patient states he has not eaten anything since 7pm last night. Episode of right lower quadrant abdominal pain in November diagnosed with questionable appendicitis was given IV Unasyn antibiotics and pain subsided. He has not had any issues since that time. States he woke this morning began to have right lower quadrant pain similar to previous episode. Patient denies fevers chills complains of vomiting and pain of 6 out of 10. upon arrival to the emergency room, IV was established patient had blood work and CT scan ordered. abdominal CT Was resulted and shows fluid-filled mildly dilated appendix with subtle adjacent stranding in the fat concerning for acute appendicitis. Patient was given IV Toradol for pain and Unasyn. Patient does have a white blood cell count of 14,000. Patient otherwise generally healthy. I did reach out to general surgeon Dr. Jackson who had seen patient previously for episode of lower abdominal pain. he is unable to do any surgery or consult for him today. we do not have surgery on-call. I then reached out to [facility] that is on-call for trauma at [facility]. They do agree to accept this patient. once patient has a bed assignment, patient will be able to drive by private car to [facility] with family. IV will be removed and patient will be seen and admitted at [facility]. Family agrees with plan of care patient will be admitted to at [facility] by Dr. Tejada Differential Diagnosis Differential diagnosis: Likely abdominal pain and acute appendicitis Medical Records Attestation: I reviewed the patient's medical records. Lab Data Attestation: I reviewed the patient's lab results. Labs: Lab Results 02/27/24 02/27/24 Range/Units 10:54 11:30 WBC 14.6 H (4.0-11.0) 10^3/uL RBC 5.50 (4.70-6.10) 10^6/uL Hgb 16.7 (14.0-18.0) g/dL Hct 49.5 (42.0-54.0) % MCV 90.0 (80.0-94.0) fL MCH 30.4 (25.9-34.0) pg MCHC 33.7 (29.9-35.2) g/dL RDW 12.8 (11.0-15.0) % Plt Count 212 (150-450) 10^3/uL MPV 9.9 (9.5-13.5) fL Neut % (Auto) 76.9 H (43.0-75.0) % Lymph % (Auto) 15.5 L (20.5-60.0) % Benzie % (Auto) 4.0 (1.7-12.0) % Eos % (Auto) 3.0 (0.9-7.0) % Baso % (Auto) 0.3 (0.2-2.0) % Neut # (Auto) 11.2 H (1.4-6.5) 10^3/uL Lymph # (Auto) 2.3 (1.2-3.8) 10^3/uL Benzie # (Auto) 0.6 (0.3-0.8) 10^3/uL Eos # (Auto) 0.4 (0.0-0.7) 10^3/uL Baso # (Auto) 0.1 (0.0-0.1) 10^3/uL Abs Immat Gran (auto) 0.05 H (0.00-0.03) 10^3/uL Imm/Tot Granulo (auto) 0.3 (0.0-0.5) % Sodium 136 (136-145) mmol/L Potassium 4.1 (3.5-5.1) mmol/L Chloride 102 (98-107) mmol/L Carbon Dioxide 31.1 (21.0-32.0) mmol/L Anion Gap 7.0 BUN 18.0 (7.0-18.0) mg/dL Creatinine 1.17 (0.70-1.30) mg/dL Est GFR ( Amer) >60 (>=60 mL/min/1.73m^2) Est GFR (Non-Af Amer) >60 (>=60 mL/min/1.73m^2) BUN/Creatinine Ratio 15.4 Glucose 107 H (74-106) mg/dL Lactate 0.8 (0.4-2.0) mmol/L Calcium 9.2 (8.5-10.1) mg/dL Total Bilirubin 0.4 (0.2-1.0) mg/dL AST 24 (15-37) U/L ALT 49 (16-63) U/L Alkaline Phosphatase 62 (46-116) U/L Total Protein 8.1 (6.4-8.2) g/dL Albumin 4.2 (3.4-5.0) g/dL Globulin 3.9 g/dL Albumin/Globulin Ratio 1.1 Lipase 31.0 (16.0-77.0) U/L Urine Color Yellow (YELLOW) Urine Clarity Clear (CLEAR) Urine pH 8.0 (5.0-9.0) Ur Specific Uneeda 1.010 (1.005-1.025) Urine Protein Negative (NEG/TRACE) mg/dL Urine Glucose (UA) Negative (NEGATIVE) mg/dL Urine Ketones Negative (NEGATIVE) mg/dL Urine Occult Blood Negative (NEGATIVE) Urine Nitrite Negative (NEGATIVE) Urine Bilirubin Negative (NEGATIVE) Urine Urobilinogen 0.2 (0.2-1.0) EU/dL Ur Leukocyte Esterase Negative (NEGATIVE) Imaging Data CT scan - abdomen: Radiologist's impression: Fluid-filled and mildly dilated appendix with subtle adjacent stranding in the fat concerning for acute appendicitis Discharge Plan Discharge Chief Complaint: Abdominal Pain Clinical Impression: Acute appendicitis Qualifiers: Acute appendicitis type: with localized peritonitis Appendicitis gangrene presence: without gangrene Appendicitis perforation presence: without perforation Appendicitis abscess presence: without abscess Qualified Code(s): K35.30 - Acute appendicitis with localized peritonitis, without perforation or gangrene Patient Disposition: [facility] Time of Disposition Decision: 14:31 Discharge location: [facility], direct admission, Dr Tejada Condition: Good Mode of Transportation: Private Vehicle Documented by User: Vicente Jeff MD 02/27/24 14:34 HPI - Abdominal Pain General Chief Complaint: Abdominal Pain Stated Complaint: APPENDIX PAINS Time Seen by Provider: 02/27/24 13:14 Related Data Home Medications ?Medication ?Instructions ?Recorded ?Confirmed No Known Home Medications 02/27/24 02/27/24 Allergies Allergy/AdvReac Type Severity Reaction Status Date / Time No Known Drug Allergies Allergy Verified 02/27/24 10:04 PFSH PFS Medical History (Updated 02/27/24 @ 14:12 by Alpa Parks) Abdominal pain ?R10.9 - Unspecified abdominal pain (ICD-10) High blood cholesterol level ?E78.00 - Pure hypercholesterolemia, unspecified (ICD-10) Family History (Updated 11/30/23 @ 18:31 by Velvet Rudolph) Mother Family history of CHF (congestive heart failure) Family history of COPD (chronic obstructive pulmonary disease) Father Family history of myocardial infarction Social History (Updated 11/30/23 @ 18:35 by Velvet Rudolph) Within the past year, how often did you have a drink containing alcohol: 2-3 times a week Within the past year, how many standard drinks containing alcohol did you have on a typical day: 1 or 2 Within the past year, how often did you have six or more drinks on one occasion: never Total score: 0 Score interpretation: A score less than 4 is consistent with normal alcohol consumption. Smoking status: Never smoker Second hand tobacco smoke exposure: No Non-prescribed substance use: denies use Previous occupational history: [employer] Highest level of school completed/degree received: some college, no degree Are you now , , , , never or living with a partner: living with partner Little interest or pleasure in doing things: not at all Feeling down, depressed, or hopeless: not at all Feel stressed/tense/nervous/anxious/difficulty sleeping: not at all Due to disability, difficulty making decisions: No Exam Constitutional Vital Signs, click to edit/add: Last Vital Signs Temp 99.2 F 02/27/24 13:24 Pulse 59 L 02/27/24 13:24 Resp 14 02/27/24 13:24 BP 139/86 02/27/24 13:24 Pulse Ox 99 02/27/24 13:24 O2 Del Method Room Air 12/20/24 13:24 Course Vital Signs Vital signs: Vital Signs Temperature 97.9 F 02/27/24 09:59 Pulse Rate 66 02/27/24 09:59 Respiratory Rate 20 02/27/24 09:59 Blood Pressure 142/86 H 02/27/24 09:59 Pulse Oximetry 99 02/27/24 09:59 Oxygen Delivery Method Room Air 02/27/24 09:59 Temperature 99.2 F 02/27/24 13:24 Pulse Rate 59 L 02/27/24 13:24 Respiratory Rate 14 02/27/24 13:24 Blood Pressure 139/86 02/27/24 13:24 Pulse Oximetry 99 02/27/24 13:24 Oxygen Delivery Method Room Air 02/27/24 13:24 MDM - Abdominal Pain MDM Narrative Medical decision making narrative: 33-year-old male presents to the emergency room chief complaint of right lower quadrant abdominal pain. Patient states the pain began around 730 this morning. He states he drank a Monster at 630 and pain began at 730. patient states he has not eaten anything since 7pm last night. Episode of right lower quadrant abdominal pain in November diagnosed with questionable appendicitis was given IV Unasyn antibiotics and pain subsided. He has not had any issues since that time. States he woke this morning began to have right lower quadrant pain similar to previous episode. Patient denies fevers chills complains of vomiting and pain of 6 out of 10. upon arrival to the emergency room, IV was established patient had blood work and CT scan ordered. abdominal CT Was resulted and shows fluid-filled mildly dilated appendix with subtle adjacent stranding in the fat concerning for acute appendicitis. Patient was given IV Toradol for pain and Unasyn. Patient does have a white blood cell count of 14,000. Patient otherwise generally healthy. I did reach out to general surgeon Dr. Jackson who had seen patient previously for episode of lower abdominal pain. he is unable to do any surgery or consult for him today. We had no surgery on-call today at [facility]. I then reached out to [facility] that is on-call for trauma surgery at [facility]. They do agree to accept this patient. once patient has a bed assignment, patient will be able to drive by private car to [facility] with family. IV will be removed and patient will be seen and admitted at [facility]. Family agrees with plan of care patient will be admitted to at [facility] by Dr. Tejada. I, Dr Jeff, have reviewed the above progress note and course of action in the ER; agree with the above. I have personally seen and evaluated this patient, gone over history and physical, and discussed disposition and treatment plan with the patient. Critical care time 31 minutes exclusive from separate billable procedures that were performed. The following was considered in the determination of critical care but not limited to the level of medical decision making, intensive cardiac and/or respiratory monitoring, frequent vital sign monitoring, evaluation of laboratory studies, evaluation of radiographic studies, oxygen monitoring, and constant monitoring and speaking to family at bedside Lab Data Labs: Lab Results 02/27/24 02/27/24 Range/Units 10:54 11:30 WBC 14.6 H (4.0-11.0) 10^3/uL RBC 5.50 (4.70-6.10) 10^6/uL Hgb 16.7 (14.0-18.0) g/dL Hct 49.5 (42.0-54.0) % MCV 90.0 (80.0-94.0) fL MCH 30.4 (25.9-34.0) pg MCHC 33.7 (29.9-35.2) g/dL RDW 12.8 (11.0-15.0) % Plt Count 212 (150-450) 10^3/uL MPV 9.9 (9.5-13.5) fL Neut % (Auto) 76.9 H (43.0-75.0) % Lymph % (Auto) 15.5 L (20.5-60.0) % Benzie % (Auto) 4.0 (1.7-12.0) % Eos % (Auto) 3.0 (0.9-7.0) % Baso % (Auto) 0.3 (0.2-2.0) % Neut # (Auto) 11.2 H (1.4-6.5) 10^3/uL Lymph # (Auto) 2.3 (1.2-3.8) 10^3/uL Benzie # (Auto) 0.6 (0.3-0.8) 10^3/uL Eos # (Auto) 0.4 (0.0-0.7) 10^3/uL Baso # (Auto) 0.1 (0.0-0.1) 10^3/uL Abs Immat Gran (auto) 0.05 H (0.00-0.03) 10^3/uL Imm/Tot Granulo (auto) 0.3 (0.0-0.5) % Sodium 136 (136-145) mmol/L Potassium 4.1 (3.5-5.1) mmol/L Chloride 102 (98-107) mmol/L Carbon Dioxide 31.1 (21.0-32.0) mmol/L Anion Gap 7.0 BUN 18.0 (7.0-18.0) mg/dL Creatinine 1.17 (0.70-1.30) mg/dL Est GFR ( Amer) >60 (>=60 mL/min/1.73m^2) Est GFR (Non-Af Amer) >60 (>=60 mL/min/1.73m^2) BUN/Creatinine Ratio 15.4 Glucose 107 H (74-106) mg/dL Lactate 0.8 (0.4-2.0) mmol/L Calcium 9.2 (8.5-10.1) mg/dL Total Bilirubin 0.4 (0.2-1.0) mg/dL AST 24 (15-37) U/L ALT 49 (16-63) U/L Alkaline Phosphatase 62 (46-116) U/L Total Protein 8.1 (6.4-8.2) g/dL Albumin 4.2 (3.4-5.0) g/dL Globulin 3.9 g/dL Albumin/Globulin Ratio 1.1 Lipase 31.0 (16.0-77.0) U/L Urine Color Yellow (YELLOW) Urine Clarity Clear (CLEAR) Urine pH 8.0 (5.0-9.0) Ur Specific Uneeda 1.010 (1.005-1.025) Urine Protein Negative (NEG/TRACE) mg/dL Urine Glucose (UA) Negative (NEGATIVE) mg/dL Urine Ketones Negative (NEGATIVE) mg/dL Urine Occult Blood Negative (NEGATIVE) Urine Nitrite Negative (NEGATIVE) Urine Bilirubin Negative (NEGATIVE) Urine Urobilinogen 0.2 (0.2-1.0) EU/dL Ur Leukocyte Esterase Negative (NEGATIVE) Discharge Plan Discharge Chief Complaint: Abdominal Pain Clinical Impression: Acute appendicitis Qualifiers: Acute appendicitis type: with localized peritonitis Appendicitis gangrene presence: without gangrene Appendicitis perforation presence: without perforation Appendicitis abscess presence: without abscess Qualified Code(s): K35.30 - Acute appendicitis with localized peritonitis, without perforation or gangrene Patient Disposition: [facility] Time of Disposition Decision: 14:31 Discharge location: [facility], direct admission, Dr Tejada Condition: Good Mode of Transportation: Private Vehicle
[2024-02-27 14:55] VITALS: BP 110/70; PULSE 72; TEMP 37.2; O2SAT 98
== END 2024-02-27 15:00 | disposition short-term general hospital (02) ==
PROVIDERS: Emergency Provider Emergency Medicine
DX: K35.30 Acute appendicitis with localized peritonitis, without perforation or gangrene (principal); R10.31 Right lower quadrant pain
CPT/HCPCS: 36415; 74177; 80053; 81003; 83605; 83690; 85025; 96365; 96375; 99285; J0295; J1885; Q9967